=== PATIENT | female | born 2000 | race Caucasian/White ===

== ENCOUNTER 2019-03-19 18:37 | Emergency (ER) | payer OTHER ==
[~2019-03-19] VITALS: Ht 165.1 cm; Wt 58.0 kg
[2019-03-19 18:55] VITALS: BP 112/72
[2019-03-19] MEDS ORDERED: AMOX-419 PO (20:21)
== END 2019-03-19 20:36 | disposition home or self-care (01) ==
LOC: ER 18:38
DX: H66.91 Otitis media, unspecified, right ear (principal); J02.9 Acute pharyngitis, unspecified; R05 Cough; R09.89 Other specified symptoms and signs involving the circulatory and respiratory systems; R09.81 Nasal congestion; Z87.891 Personal history of nicotine dependence; Z79.2 Long term (current) use of antibiotics
CPT/HCPCS: 99283